=== PATIENT | male | born 1950 | race Caucasian/White ===

== ENCOUNTER 2024-06-25 06:49 | Day surgery (SDC) | payer MEDICARE, BC, SELFPAY ==
[2024-06-25 07:16] VITALS: BP 152/87; PULSE 63; RESP 18; TEMP 36.4; O2SAT 97; BMI 35.4
[2024-06-25 07:17] LABS: Glucose Point of Care 177 mg/dL (70-110)
[2024-06-25] MEDS: sodium chloride 0.9% 500 ML 15 ML IV (07:25)
--- NOTE | 2024-06-25 07:35 | ANES.PREANE2 ---
Pre-Anesthetic Assessment Height/Weight: Height 1.7 m Weight 102.512 kg Temp Pulse Resp BP Pulse Ox O2 Del Method 97.5 F L 63 18 152/87 97 Room Air 06/25/24 07:16 06/25/24 07:16 06/25/24 07:16 06/25/24 07:16 06/25/24 07:16 06/25/24 07:16 Preop Diagnosis: GERD, screening Operation Date: 06/25/24 07:45 Proposed Procedures p EGD 20804, 67979, G0101, Z12.11, K21.9(Not Applicable) - Trey Malone DO s Colonoscopy(Not Applicable) - Trey Malone DO Familial anesthetic complications: none Was Beta Bladimir taken within 24 hours: Yes Was Clonidine taken within 24 hours: N/A Last intake: Intake Last Liquid Date 06/24/24 Last Liquid Time 22:00 Last Solid Date 06/23/24 Last Solid Time 17:00 Social Alcohol and Tobacco Exam alert and oriented x 3 Airway Submandibular: within normal limits Cervical ROM: within normal limits Mallampati: Class II Dentition: false History/ROS No significant history except as noted Pulmonary Sleep Apnea CV/HEM Hypertension None reported Hepatic None reported GI Gastroesophageal Reflux Disease Metabolic Diabetes Mellitus (recently off metformin- diet and exercise congtrolled), Hyperlipidemia and Thyroid Disease Musc/skel Lower Back Pain Neuropsych None reported Anesthetic Plan ASA status: 3 Anesthesia: Anesthesia Evaluation and MAC Medications/Allergies Home Medications Medication Instructions Recorded Confirmed Last Taken Type CPAP new machine and supplies #1 ea 06/10/24 06/16/24 Unknown Rx atorvastatin 20 mg tablet 20 mg PO DAILY 06/10/24 06/24/24 06/24/24 History azelastine 137 mcg (0.1 %) nasal 1 spray intranasal BID 06/10/24 06/24/24 06/24/24 History spray cholecalciferol (vitamin D3) 50 50 mcg PO DAILY 06/10/24 06/24/24 06/24/24 History mcg (2,000 unit) capsule cyclobenzaprine 10 mg tablet 10 mg PO TID PRN Muscle Spasm 06/10/24 06/25/24 1 Week Ago History ~06/18/24 gabapentin 300 mg capsule 300 mg PO TID 06/10/24 06/24/24 06/24/24 History hydrochlorothiazide 25 mg tablet 25 mg PO DAILY 06/10/24 06/24/24 06/24/24 History ibuprofen 800 mg tablet 800 mg PO Q8H PRN pain or fever 06/10/24 06/25/24 2 Months Ago History ~04/25/24 levothyroxine 75 mcg tablet 75 mcg PO DAILY 06/10/24 06/24/24 06/25/24 05:30 History metoprolol tartrate 50 mg tablet 100 mg PO BID 06/10/24 06/24/24 06/25/24 05:30 History multivitamin 1 tab PO DAILY 06/10/24 06/24/24 06/24/24 History omega 9-kiu-dac-fish oil 1,000 mg 2 cap PO DAILY 06/10/24 06/24/24 06/24/24 History (120 mg-180 mg) capsule (Fish Oil) vitamins A,C,E-jkuu-ngjrqw 2,148 2 tab PO BID 06/10/24 06/24/24 06/24/24 History mcg-113 mg-45 mg-17.4 mg tablet (PreserVision AREDS) pantoprazole 40 mg tablet,delayed 40 mg PO BID 6 weeks #84 tabs 06/18/24 06/24/24 06/24/24 Rx release (Protonix) Allergies Allergy/AdvReac Type Severity Reaction Status Date / Time augmentin Allergy sick, Uncoded 06/24/24 06:55 really bad Current Medications Generic Name Dose Route Start Last Admin Trade Name Freq PRN Reason Stop Dose Admin Sodium Chloride 500 mls @ 15 mls/hr 06/25/24 07:05 06/25/24 07:25 Sodium Chloride 0.9% IV 06/26/24 07:04 15 mls/hr .Q24H PRN Administration COLONOSCOPY FLUIDS PFSH Anesthesia Medical History Perennial allergic rhinitis Nodule of left lung 5mm on CT at [facility] [place]--found incidentally after a fall injury; repeat CT 04/03/25 Family hx of colon cancer Chronic post-traumatic stress disorder (PTSD) after combat Peripheral neuropathy Chronic low back pain with sciatica has had PT, ESIs Hyperlipidemia, mixed Uncontrolled type 2 diabetes mellitus, without long-term current use of insulin GERD without esophagitis HTN (hypertension) with goal to be determined Sleep apnea on CPAP Surgical History Hx of colonoscopy Q5yrs due to father had colon cancer--due now 2023 H/O hernia repair Left inguinal History of cholecystectomy History of nasal surgery sinus polyps surgery Family History Father Colon cancer Mother COPD (chronic obstructive pulmonary disease) Emphysema lung Social History Smoking and tobacco/nicotine status: former use of tobacco/nicotine Quit status (tobacco/nicotine): has quit using Year quit tobacco: 1983 Alcohol intake: current Alcohol intake frequency: holidays/special occasions only Alcohol type: beer Substance/Drug Use: current Substance/Drug use frequency: few times a week Other substance/drug use details: PRATIK caicedo Household members: spouse Marital status: Number of children: 2 Highest education level completed: Some College, No Degree Current occupational status: retired 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
--- NOTE | 2024-06-25 07:57 | W.PM.OPSUD ---
Surgery/Procedure H&P Update DATE OF PROCEDURE: June 25, 2024 DATE H&P PERFORMED: 06/16/24 H&P UPDATE INFORMATION: I have reviewed H&P completed within last 30 days, I have examined patient prior to procedure and No changes to prior documentation PREOP DIAGNOSIS: GERD, screening PLANNED PROCEDURE: Operation Date: 06/25/24 07:45 Proposed Procedures p EGD 97127, 37645, G0101, Z12.11, K21.9(Not Applicable) - DO milagros Albert Colonoscopy(Not Applicable) - Trey Malone DO
[2024-06-25 08:34] VITALS: BP 154/87; PULSE 60; RESP 16; TEMP 37; O2SAT 93
[2024-06-25 09:02] VITALS: BP 160/91; PULSE 56; RESP 18; O2SAT 94
--- NOTE | 2024-06-25 09:12 | ANE.PACU2 ---
Inpatient post-anesthesia follow up: Airway intact: Yes Vital signs: Temperature 98.6 F Pulse Rate 56 Respiratory Rate 18 Blood Pressure 160/91 Pulse Oximetry 94 Oxygen Delivery Me thod Room Air Oxygen Flow Rate Fraction of Inspir ed Oxygen Hydration adequate: Yes Nausea and vomiting: No Pain level: 1 Mental status: Baseline
== END 2024-06-25 09:12 | disposition home or self-care (01) ==
PROVIDERS: PCP Family Medicine; Visit Provider Surgery
PROC: 0DJ08ZZ Inspection of Upper Intestinal Tract, Via Natural or Artificial Opening Endoscopic (ICD-10-PCS; CPT 43235; principal; 2024-06-25 07:45)
PROC: 0DJD8ZZ Inspection of Lower Intestinal Tract, Via Natural or Artificial Opening Endoscopic (ICD-10-PCS; CPT 45378; 2024-06-25 07:45)
DX: Z12.11 Encounter for screening for malignant neoplasm of colon (principal); K21.9 Gastro-esophageal reflux disease without esophagitis; K29.50 Unspecified chronic gastritis without bleeding; D12.2 Benign neoplasm of ascending colon; D12.3 Benign neoplasm of transverse colon; K57.30 Diverticulosis of large intestine without perforation or abscess without bleeding; K64.8 Other hemorrhoids; I10 Essential (primary) hypertension; E11.9 Type 2 diabetes mellitus without complications; Z80.0 Family history of malignant neoplasm of digestive organs; G47.30 Sleep apnea, unspecified; Z87.891 Personal history of nicotine dependence
CPT/HCPCS: 36416; 43239; 45385; 82962; 88305; 88309; 88342; J2704; J7040

== ENCOUNTER → 2024-07-07 08:44 | Outpatient (BNVA) | payer MEDICARE, BC, SELFPAY | PROVIDERS: PCP Family Medicine; Visit Provider Surgery | DX: Z09 Encounter for follow-up examination after completed treatment for conditions other than malignant neoplasm (principal); K21.9 Gastro-esophageal reflux disease without esophagitis; D37.4 Neoplasm of uncertain behavior of colon | CPT/HCPCS: 99214 ==

== ENCOUNTER → 2024-10-21 09:33 | Outpatient (BNVA) | payer MEDICARE, BC, SELFPAY | PROVIDERS: PCP Family Medicine; Visit Provider Family Medicine | DX: E03.8 Other specified hypothyroidism (principal); E78.2 Mixed hyperlipidemia; I10 Essential (primary) hypertension; G47.30 Sleep apnea, unspecified; E11.65 Type 2 diabetes mellitus with hyperglycemia | CPT/HCPCS: 80053; 80061; 82043; 83036; 83721; 84443; 85025 ==

== ENCOUNTER 2024-11-14 07:47 | Outpatient (CLI) | payer MEDICARE, BC, SELFPAY ==
--- NOTE | 2024-11-14 08:00 | CTR_ITS ---
PROCEDURE INFORMATION: Exam: CT Neck Without Contrast Exam date and time: 11/14/2024 7:58 AM Age: 74 years old Clinical indication: Mass, lump, or swelling in neck; Bilateral; Swelling, not thyroid region but soft tissue area below mandible. PT states it happened several yrs ago as well and was hospitalized for iv antibiots. PT states swelling began again several mon ago. No pain. Middle of region marked with bb. ; Additional info: Mass of submandibular region TECHNIQUE: Imaging protocol: Computed tomography of the neck without contrast. Radiation optimization: All CT scans at this facility use at least one of these dose optimization techniques: automated exposure control; mA and/or kV adjustment per patient size (includes targeted exams where dose is matched to clinical indication); or iterative reconstruction. COMPARISON: No relevant prior studies available. RADIATION DOSE METRICS: Total DLP (mGy-cm): 266.83 FINDINGS: Paranasal sinuses: Severe left maxillary sinus mucosal thickening with suggestion of an air-fluid level. Occlusion of the left ostiomeatal unit. There is moderate mucosal thickening in the right maxillary sinus also with occluded ostiomeatal unit. Moderate left anterior middle ethmoid sinus mucosal thickening. Salivary glands: Normal. Glands are normal in size. Pharynx: Unremarkable. No significant tonsillar enlargement. Larynx: Unremarkable. Epiglottis is normal. Thyroid: Normal. No enlarged or calcified nodules. Trachea: Visualized trachea is unremarkable. Lungs: Unremarkable as visualized. Lymph nodes: Unremarkable. No lymphadenopathy. Bones/joints: Degenerative changes of the right sternoclavicular joint. Multilevel degenerative changes in the cervical spine. No acute fracture. Soft tissues: Unremarkable. No significant soft tissue swelling. CT/CT neck wo con [id number] IMPRESSION: Paranasal sinus disease as described with an air-fluid level in the left maxillary sinus.
== END 2024-11-14 07:48 | disposition home or self-care (01) ==
PROVIDERS: PCP Family Medicine; Visit Provider Family Medicine
DX: R22.0 Localized swelling, mass and lump, head (principal); J32.0 Chronic maxillary sinusitis; J34.89 Other specified disorders of nose and nasal sinuses; M19.011 Primary osteoarthritis, right shoulder; M47.892 Other spondylosis, cervical region
CPT/HCPCS: 70490

== ENCOUNTER → 2025-01-29 10:40 | Outpatient (BNVA) | payer MEDICARE, BC, SELFPAY | PROVIDERS: PCP Family Medicine; Visit Provider Family Medicine | DX: E11.9 Type 2 diabetes mellitus without complications (principal) | CPT/HCPCS: 83036 ==

== ENCOUNTER → 2025-03-26 09:49 | Outpatient (BNVA) | payer MEDICARE, BC, SELFPAY | PROVIDERS: PCP Family Medicine; Visit Provider Dermatology | DX: L71.8 Other rosacea (principal); L82.1 Other seborrheic keratosis; L85.3 Xerosis cutis; D22.4 Melanocytic nevi of scalp and neck; L57.0 Actinic keratosis | CPT/HCPCS: 17000; 99204 ==

== ENCOUNTER 2025-04-03 11:49 | Outpatient (CLI) | payer MEDICARE, BC, SELFPAY ==
--- NOTE | 2025-04-03 12:00 | CT_ITS ---
WS: [id number] CT chest wo con [id number] HISTORY: f/u 5mm lung nodule TECHNIQUE: Axial imaging performed through the thorax. Coronal and sagittal reformats are submitted. All CT scans at [facility] use at least one of these dose optimization techniques: automated exposure control; mA and/or kV adjustment per patient size (includes targeted exams where dose is matched to clinical indication); or iterative reconstruction. CONTRAST: None DLP: 412.65 mGy.cm COMPARISON: None available. Lungs and central airway: Peripheral interstitial thickening bilaterally throughout both lungs. There is an irregular 5 mm nodule in the posterior RIGHT lower lobe. No additional mass or nodule identified. There is a small amount of mucus debris retained within the trachea. Pleura: Normal. No pleural effusion. Heart and pericardium: Normal size heart with no pericardial effusion. Mediastinum and leidy: No mediastinum or hilar adenopathy. Vessels: Mild atherosclerosis aorta. Normal size pulmonary artery and aorta. Chest wall and lower neck: Bilateral thyroid is enlarged and extends substernal most likely a goiter. Upper abdomen: Prior cholecystectomy. No adrenal mass. Visualized liver is normal. Osseous structures: Mild increase in thoracic kyphosis. CT/CT chest wo con [id number] IMPRESSION: 1. No prior studies for comparison. 2. 5 mm nodule posterior RIGHT lower lobe. Recommend follow-up Indeterminate solid pulmonary nodule measuring 5 mm. In a low-risk patient with a solid nodule <6 mm, recommend no follow-up. In a high-risk patient, CT at 12 months is optional with stronger consideration if there is suspicious nodule m orphology and/or upper lobe location. 3. Chronic interstitial lung disease. No pneumonia. 4. Mild atherosclerosis aorta. 5. Thyromegaly, enlarged thyroid extends substernal. 6. Prior cholecystectomy.
== END 2025-04-03 11:50 | disposition home or self-care (01) ==
LOC: RAD 11:50
PROVIDERS: PCP Family Medicine; Visit Provider Family Medicine
DX: R91.1 Solitary pulmonary nodule (principal); E04.9 Nontoxic goiter, unspecified; Z90.49 Acquired absence of other specified parts of digestive tract; M40.204 Unspecified kyphosis, thoracic region; J84.9 Interstitial pulmonary disease, unspecified; I70.0 Atherosclerosis of aorta
CPT/HCPCS: 71250

== ENCOUNTER → 2025-04-28 10:05 | Outpatient (BNVA) | payer MEDICARE, BC, SELFPAY | PROVIDERS: PCP Family Medicine; Visit Provider Family Medicine | DX: E11.65 Type 2 diabetes mellitus with hyperglycemia (principal); I10 Essential (primary) hypertension; E78.2 Mixed hyperlipidemia | CPT/HCPCS: 80053; 83036; 85025 ==

== ENCOUNTER 2025-06-08 13:14 | Outpatient (CLI) | payer OTHER, SELFPAY ==
--- NOTE | 2025-06-08 13:19 | XR_ITS ---
WS: [id number] DEXA (DUAL ENERGY X-RAY ABSORPTIOMETRY) Bone mineral density was performed using a [employer] machine. HISTORY: VERTEBRAL FX ASSESSMENT COMPARISON: None available. Lumbar spine BMD (L1-L4): 1.296 g/cm2 T score: 0.6 Z score: 0.8 Total hip BMD: Left: 1.042 g/cm2. T score: -0.4 Z score: 0.2 Right: 1.068 g/cm2. T score: -0.2 Z score: 0.4 10 year probability of a major osteoporotic fracture is 5.7%. XR/XR DEXA axial skeleton* [id number] IMPRESSION: Normal bone mineral density. Male patient.
== END 2025-06-08 13:15 | disposition home or self-care (01) ==
LOC: RAD 13:15
PROVIDERS: PCP Family Medicine; Visit Provider Family Medicine
DX: Z13.820 Encounter for screening for osteoporosis (principal); M81.0 Age-related osteoporosis without current pathological fracture
CPT/HCPCS: 77080